=== PATIENT | female | born 1950 | race Caucasian/White ===

== ENCOUNTER 2019-02-02 17:23 | Emergency (ER) | payer BC ==
[2019-02-02 19:03] VITALS: BP 154/70
--- NOTE | 2019-02-02 19:08 | UC ---
Knee Pain HPI - HPI Summary HPI Summary: patient tripped over a cord and landed on her left knee, hard to bear weight and move it, very painful. - History of Current Complaint Chief Complaint: UCLowerExtremity Stated Complaint: LEFT KNEE INJURY Time Seen by Provider: 02/02/19 19:02 Hx Obtained From: Patient ?: No Onset/Duration: Sudden Onset, Lasting Hours Severity Initially: Severe Severity Currently: Severe Pain Intensity: 7 Character: Aching, Throbbing Aggravating Factor(s): Movement, Weight Bearing, Prolonged Standing, Stairs Alleviating Factor(s): Cold Associated Signs And Symptoms: Positive: Swelling - Allergies/Home Medications Allergies/Adverse Reactions: Allergies Allergy/AdvReac Type Severity Reaction Status Date / Time amoxicillin Allergy Unknown Rash Verified 02/02/19 18:50 latex Allergy Unknown skin Verified 02/02/19 18:50 crackes and bleeds Home Medications: Home Medications Acetaminophen TAB* [Tylenol TAB*] 325 mg PO Q4H PRN 02/02/19 [History Confirmed 02/02/19] Cholecalciferol (Vitamin D3) [Vitamin D3] 1,000 unit PO DAILY 02/02/19 [History Confirmed 02/02/19] Cranberry Fruit Extract [Cranberry Extract] 200 mg PO DAILY 02/02/19 [History Confirmed 02/02/19] Diltiazem CD CAP* [Cardizem CD CAP*] 180 mg PO DAILY 02/02/19 [History Confirmed 02/02/19] Fluticasone NASAL SPRAY 50MCG* [Flonase NASAL SPRAY 50MCG*] 2 spray BOTH NARES DAILY PRN 02/02/19 [History Confirmed 02/02/19] PMH/Surg Hx/FS Hx/Imm Hx Previously Healthy: Yes - Surgical History Surgical History: Yes Surgery Procedure, Year, and Place: cataract surgery [facility] 2012 tubal LIGATION. LEFT CATARACT. APPENDECTOMY - Family History Known Family History: Negative: Cardiac Disease, Hypertension - Social History Alcohol Use: None Substance Use Type: None Smoking Status (MU): Former Smoker When Did the Patient Quit Smoking/Using Tobacco: 1977 Review of Systems All Other Systems Reviewed And Are Negative: Yes Constitutional: Positive: Negative Skin: Positive: Negative Eyes: Positive: Negative ENT: Positive: Negative Respiratory: Positive: Negative Cardiovascular: Positive: Negative Gastrointestinal: Positive: Negative Genitourinary: Positive: Negative Motor: Positive: Negative Neurovascular: Positive: Negative Musculoskeletal: Positive: Arthralgia, Decreased ROM, Myalgia Neurological: Positive: Negative Psychological: Positive: Negative Is Patient Immunocompromised?: No Physical Exam Triage Information Reviewed: Yes Appearance: Well-Appearing, Pain Distress, Obese Vital Signs: Initial Vital Signs Temp 98.6 F 02/02/19 18:56 Pulse 81 02/02/19 18:56 Resp 20 02/02/19 18:56 BP 154/70 02/02/19 18:56 Pulse Ox 98 02/02/19 18:56 Eye Exam: Normal ENT Exam: Normal Dental Exam: Normal Neck exam: Normal Respiratory Exam: Normal Respiratory: Positive: Chest non-tender, Lungs clear, Normal breath sounds Cardiovascular Exam: Normal Cardiovascular: Positive: RRR, No Murmur, Pulses Normal Abdominal Exam: Normal Abdomen Description: Positive: Nontender, No Organomegaly, Soft Bowel Sounds: Positive: Present Musculoskeletal: Positive: Strength Limited @ - cant bear weight, ROM Limited @ - due to pain and sweeling, Edema @ - left knee joint with bruising noted Neurological Exam: Normal Psychological Exam: Normal Skin Exam: Normal Knee Pain Course/Dx - Course Course Of Treatment: hx obtained, exam performed ,meds reviewed, xray obtained no fracture noted, swelling and bruising of knee noted. maxx and immobilizer given recommend follow up with ortho - Differential Dx/Diagnosis Differential Diagnosis/HQI/PQRI: Contusion, Fracture (Closed), Sprain, Strain Provider Diagnosis: Swelling of knee joint, left, Contusion Discharge - Sign-Out/Discharge Documenting (check all that apply): Patient Departure All imaging exams completed and their final reports reviewed: No - Discharge Plan Condition: Stable Disposition: HOME Patient Education Materials: Swollen Knee Joint (ED) Referrals: Miriam Larry MD [Primary Care Provider] - Additional Instructions: 1. use the maxx wrap and immobilizer, aleve 1-2 tabs every 12 hours 2. Rest, ice and elevate 3. Follow up with Dr May on monday - Billing Disposition and Condition Condition: STABLE Disposition: Home
--- NOTE | 2019-02-03 09:15 | UC ---
- Additional EKG/XRAY/Consults Comments: wet read correct Course/Dx - Diagnoses Provider Diagnoses: Swelling of knee joint, left, Contusion Discharge - Sign-Out/Discharge Documenting (check all that apply): Patient Departure, Post-Discharge Follow Up All imaging exams completed and their final reports reviewed: Yes - Discharge Plan Condition: Stable Disposition: HOME Patient Education Materials: Swollen Knee Joint (ED) Referrals: Miriam Larry MD [Primary Care Provider] - Additional Instructions: 1. use the maxx wrap and immobilizer, aleve 1-2 tabs every 12 hours 2. Rest, ice and elevate 3. Follow up with Dr May on monday - Billing Disposition and Condition Condition: STABLE Disposition: Home
== END 2019-02-02 20:04 | disposition home or self-care (01) ==
LOC: UCCORT 17:23
DX: M25.461 Effusion, right knee (principal); S80.01XA Contusion of right knee, initial encounter; Z91.040 Latex allergy status; Z87.891 Personal history of nicotine dependence; Z88.0 Allergy status to penicillin; W18.31XA Fall on same level due to stepping on an object, initial encounter; Y92.9 Unspecified place or not applicable
CPT/HCPCS: 99213; G0463